=== PATIENT | female | born 1975 | race Caucasian/White ===

== ENCOUNTER 2022-01-12 12:35 | Inpatient (IN) | payer OTHER ==
[~2022-01-12] VITALS: Ht 165.1 cm; Wt 58.1 kg
[2022-01-12] MEDS ORDERED: PEPCID AC10 MG PO (14:09)
[2022-01-12] MEDS ORDERED: TYLENOL325 MG PO (14:10)
[2022-01-12] MEDS ORDERED: PRENATAL TABLE1 EAC1 PO (14:10)
[2022-01-12] MEDS ORDERED: FISH OIL 1,0001 EAC1 PO (14:10)
== END 2022-01-15 13:20 | disposition home or self-care (01) | DRG 833 ==
LOC: NST 12:35 → LDR 12:52 → OB/GYN 01-13 21:53
PROVIDERS: ADMIT Obstetrics & Gynecology; ATTEND Obstetrics & Gynecology
PROC: BY4DZZZ Ultrasonography of Second Trimester, Multiple Gestation (ICD-10-PCS; principal; 2022-01-12)
PROC: 4A1HXCZ Monitoring of Products of Conception, Cardiac Rate, External Approach (ICD-10-PCS; 2022-01-12)
DX: O47.02 False labor before 37 completed weeks of gestation, second trimester (principal); O30.042 Twin pregnancy, dichorionic/diamniotic, second trimester; Z3A.24 24 weeks gestation of pregnancy; Z20.822 Contact with and (suspected) exposure to COVID-19

== ENCOUNTER 2022-02-02 11:34 | Inpatient (IN) | payer OTHER ==
[~2022-02-02] VITALS: Ht 152.4 cm; Wt 58.1 kg
[~2022-02-02 11:34] MED LIST: FISH OIL 1,0001 EAC1 PO; PEPCID AC10 MG PO; PRENATAL TABLE1 EAC1 PO; TYLENOL325 MG PO
[2022-02-03] MEDS ORDERED: NIFEDIPINE ER60 M1 (09:48)
[2022-02-03] MEDS ORDERED: CONCEPT OB CAP1 EACH (09:48)
== END 2022-02-09 10:01 | disposition home or self-care (01) | DRG 833 ==
LOC: NST 11:34 → LDR 12:20 → OB/GYN 02-04 13:46
PROVIDERS: ADMIT Obstetrics & Gynecology; ATTEND Obstetrics & Gynecology
PROC: 4A1HXCZ Monitoring of Products of Conception, Cardiac Rate, External Approach (ICD-10-PCS; principal; 2022-02-02)
PROC: BU4CZZZ Ultrasonography of Uterus and Ovaries (ICD-10-PCS; 2022-02-08)
PROC: BY4DZZZ Ultrasonography of Second Trimester, Multiple Gestation (ICD-10-PCS; 2022-02-08)
DX: O47.02 False labor before 37 completed weeks of gestation, second trimester (principal); O30.042 Twin pregnancy, dichorionic/diamniotic, second trimester; Z3A.27 27 weeks gestation of pregnancy; Z20.822 Contact with and (suspected) exposure to COVID-19

== ENCOUNTER 2022-02-16 12:13 | Outpatient (CLI) | payer OTHER ==
[~2022-02-16 12:13] MED LIST changes: +CONCEPT OB CAP1 EACH; +NIFEDIPINE ER60 M1
== END 2022-02-16 12:47 | disposition home or self-care (01) ==
LOC: NST 12:13
PROVIDERS: ATTEND Obstetrics & Gynecology Maternal & Fetal Medicine
DX: Z34.83 Encounter for supervision of other normal pregnancy, third trimester (principal)

== ENCOUNTER 2022-02-23 09:42 | Outpatient (CLI) | payer OTHER | END 2022-02-23 10:23 | disposition home or self-care (01) | LOC: NST 09:42 | PROVIDERS: ATTEND Obstetrics & Gynecology Maternal & Fetal Medicine | DX: Z34.83 Encounter for supervision of other normal pregnancy, third trimester (principal) ==

== ENCOUNTER 2022-03-01 09:32 | Outpatient (CLI) | payer OTHER | END 2022-03-01 10:09 | disposition home or self-care (01) | LOC: NST 09:32 | PROVIDERS: ATTEND Obstetrics & Gynecology Maternal & Fetal Medicine | DX: Z34.83 Encounter for supervision of other normal pregnancy, third trimester (principal) ==

== ENCOUNTER 2022-03-09 12:31 | Outpatient (CLI) | payer OTHER | END 2022-03-09 13:16 | disposition home or self-care (01) | LOC: NST 12:31 | PROVIDERS: ATTEND Obstetrics & Gynecology | DX: Z34.83 Encounter for supervision of other normal pregnancy, third trimester (principal) ==

== ENCOUNTER 2022-03-16 10:00 | Outpatient (CLI) | payer OTHER | END 2022-03-16 11:07 | disposition home or self-care (01) | LOC: NST 10:00 | PROVIDERS: ATTEND Obstetrics & Gynecology Maternal & Fetal Medicine | DX: Z34.83 Encounter for supervision of other normal pregnancy, third trimester (principal) ==

== ENCOUNTER 2022-03-23 10:29 | Outpatient (CLI) | payer OTHER | END 2022-03-23 11:02 | disposition home or self-care (01) | LOC: NST 10:29 | PROVIDERS: ATTEND Obstetrics & Gynecology Maternal & Fetal Medicine | DX: Z34.83 Encounter for supervision of other normal pregnancy, third trimester (principal) ==

== ENCOUNTER 2022-03-30 10:04 | Outpatient (CLI) | payer OTHER | END 2022-03-30 11:10 | disposition home or self-care (01) | LOC: NST 10:04 | PROVIDERS: ATTEND Obstetrics & Gynecology Maternal & Fetal Medicine | DX: Z34.83 Encounter for supervision of other normal pregnancy, third trimester (principal) ==

== ENCOUNTER 2022-04-06 11:26 | Outpatient (CLI) | payer OTHER | END 2022-04-06 12:04 | disposition home or self-care (01) | LOC: NST 11:26 | PROVIDERS: ATTEND Obstetrics & Gynecology Maternal & Fetal Medicine | DX: Z34.83 Encounter for supervision of other normal pregnancy, third trimester (principal) ==

== ENCOUNTER 2022-04-11 12:26 | Outpatient (CLI) | payer OTHER | END 2022-04-11 13:03 | disposition home or self-care (01) | LOC: NST 12:26 | PROVIDERS: ATTEND Obstetrics & Gynecology Maternal & Fetal Medicine | DX: Z34.83 Encounter for supervision of other normal pregnancy, third trimester (principal) ==

== ENCOUNTER 2022-04-13 06:30 | Inpatient (IN) | payer OTHER ==
[~2022-04-13] VITALS: Ht 165.1 cm; Wt 1.8 kg
[2022-04-13] MEDS ORDERED: COMPLETE NATAL1 EACH PO (07:07)
[2022-04-13] MEDS ORDERED: PANTOPRAZOLE SO40 MG (13:05)
[2022-04-13] MEDS ORDERED: CONCEPT OB CAP1 EACH (13:05)
[2022-04-13] MEDS ORDERED: PROGESTERO50 MG/1 M1 (13:05)
[2022-04-13] MEDS ORDERED: NIFEDIPINE ER60 M1 (13:05)
[2022-04-13] MEDS ORDERED: FAMOTIDINE40 MG (13:05)
== END 2022-04-16 16:42 | disposition home or self-care (01) | DRG 788 ==
LOC: O/R 06:30 → OB/GYN 12:00
PROVIDERS: ADMIT Obstetrics & Gynecology Maternal & Fetal Medicine; ATTEND Obstetrics & Gynecology Maternal & Fetal Medicine
PROC: 4A1HXCZ Monitoring of Products of Conception, Cardiac Rate, External Approach (ICD-10-PCS; 2022-04-13)
PROC: 10D00Z1 Extraction of Products of Conception, Low, Open Approach (ICD-10-PCS; principal; 2022-04-13 12:00)
DX: O32.8XX2 Maternal care for other malpresentation of fetus, fetus 2 (principal); O30.043 Twin pregnancy, dichorionic/diamniotic, third trimester; Z3A.37 37 weeks gestation of pregnancy; Z37.2 Twins, both liveborn; Z20.822 Contact with and (suspected) exposure to COVID-19